=== PATIENT | male | born 1980 | race African-American/Black ===

== ENCOUNTER 2017-07-20 18:00 | Emergency (ER) | payer SELFPAY ==
[2017-07-20] MEDS ORDERED: Ketorolac Tromethamine 60 MG/2 ML VIAL ONE (18:59)
[2017-07-20] MEDS ORDERED: traMADol HCl 50 MG TAB ONE (18:59)
== END 2017-07-20 19:18 | disposition home or self-care (01) ==
LOC: BURERS 18:00
DX: S33.5XXA Sprain of ligaments of lumbar spine, initial encounter (principal); X50.9XXA Other and unspecified overexertion or strenuous movements or postures, initial encounter; Y92.69 Other specified industrial and construction area as the place of occurrence of the external cause
CPT/HCPCS: 96372; J1885

== ENCOUNTER 2018-05-15 11:50 | Emergency (ER) | payer SELFPAY | END 2018-05-15 12:27 | disposition home or self-care (01) | LOC: BURERS 11:50 | DX: Z20.2 Contact with and (suspected) exposure to infections with a predominantly sexual mode of transmission (principal); F17.210 Nicotine dependence, cigarettes, uncomplicated | CPT/HCPCS: 87255; 87491; 87591; 99283 ==

== ENCOUNTER 2018-07-04 20:09 | Emergency (ER) | payer OTHER, SELFPAY ==
[2018-07-04] MEDS ORDERED: Cephalexin 500 MG CAP ONE (20:29)
== END 2018-07-04 20:41 | disposition home or self-care (01) ==
LOC: BURERS 20:09
DX: S61.211A Laceration without foreign body of left index finger without damage to nail, initial encounter (principal); F17.210 Nicotine dependence, cigarettes, uncomplicated; W26.8XXA Contact with other sharp object(s), not elsewhere classified, initial encounter
CPT/HCPCS: 99282

== ENCOUNTER 2018-12-10 16:20 | Emergency (ER) | payer SELFPAY ==
[2018-12-10] MEDS ORDERED: Ketorolac Tromethamine 60 MG/2 ML VIAL ONE (16:43)
[2018-12-10] MEDS ORDERED: Cyclobenzaprine 10 MG TAB ONE (16:43)
== END 2018-12-10 16:55 | disposition home or self-care (01) ==
LOC: BURERS 16:20
DX: M54.5 Low back pain (principal); F17.210 Nicotine dependence, cigarettes, uncomplicated
CPT/HCPCS: 96372; J1885

== ENCOUNTER 2019-08-18 15:05 | Emergency (ER) | payer SELFPAY | END 2019-08-18 15:43 | disposition home or self-care (01) | LOC: BURERS 15:05 | DX: S39.012A Strain of muscle, fascia and tendon of lower back, initial encounter (principal); F17.290 Nicotine dependence, other tobacco product, uncomplicated; X50.9XXA Other and unspecified overexertion or strenuous movements or postures, initial encounter | CPT/HCPCS: 99283 ==

== ENCOUNTER 2021-10-11 12:34 | Emergency (ER) | payer SELFPAY | END 2021-10-11 14:05 | disposition home or self-care (01) | LOC: BURERS 12:34 | DX: S39.012A Strain of muscle, fascia and tendon of lower back, initial encounter (principal); X50.0XXA Overexertion from strenuous movement or load, initial encounter | CPT/HCPCS: 99283 ==

== ENCOUNTER 2022-11-30 12:55 | Emergency (ER) | payer SELFPAY | END 2022-11-30 13:22 | disposition home or self-care (01) | LOC: BURERS 12:55 | DX: M54.50 Low back pain, unspecified (principal); F17.210 Nicotine dependence, cigarettes, uncomplicated | CPT/HCPCS: 99283 ==

== ENCOUNTER 2023-07-16 11:54 | Emergency (ER) | payer SELFPAY ==
[2023-07-16] MEDS ORDERED: predniSONE 20 MG TAB ONE (12:14)
[2023-07-16] MEDS ORDERED: Ketorolac Tromethamine 30 MG (1 mL) VIAL ONE (12:14)
== END 2023-07-16 12:42 | disposition home or self-care (01) ==
LOC: BURERS 11:54
DX: M54.16 Radiculopathy, lumbar region (principal); F17.290 Nicotine dependence, other tobacco product, uncomplicated; X50.1XXA Overexertion from prolonged static or awkward postures, initial encounter
CPT/HCPCS: 96372; 99283; J1885; J7512